=== PATIENT | male | born 1980 | race Caucasian/White ===

== ENCOUNTER 2024-12-07 23:32 | Emergency (ER) | payer BC, SELFPAY ==
[2024-12-07 23:41] VITALS: BP 117/94
[2024-12-08 00:31] VITALS: BMI 28.1
--- NOTE | 2024-12-08 00:39 | ED.GENMED ---
History of Present Illness
General
Chief Complaint: Fever
Time Seen by Provider: 12/08/24 00:08
History of Present Illness
History of Present Illness:
44-year-old man presenting to the emergency department with diarrhea. Patient states for the past 24 hours she has had multiple episodes of diarrhea. Is nonbloody. He has had a few episodes of nausea vomiting this morning. He is also had a fever
at home. He states that his son has similar symptoms and was admitted at [facility] yesterday. They are working him up for possible bacterial diarrhea. They do not have a stool culture back yet. Patient denies any recent travel antibiotics or new
food. No rash. He does state that he felt slightly lightheaded dizzy earlier today
Phy Exam
Physical Exam
Physical Exam:
GENERAL: in no acute distress
HEENT: normocephalic, extraocular movements intact, dry oral mucosa
NECK: normal inspection
RESPIRATORY: no respiratory distress, clear to auscultation bilaterally
CARDIOVASCULAR: regular rate and rhythm
ABDOMEN/: soft, non-distended, non-tender to palpation, no rebound or guarding
EXTREMITIES: non-tender, no edema/swelling
NEUROLOGIC: awake and alert, moves all extremities
SKIN: warm
Sepsis
Sepsis Screening
Sepsis Assessment: Sepsis Ruled Out
Sepsis Screen
Sepsis Screen: Sepsis Ruled Out
Date: 12/08/24
Time: 01:58
Course
Orders/Labs/Results
Orders:
Orders
12/08/24 00:33
0.9% Sodium Chloride 1000 ml [Nss] 1,000 ml IV BOLUS
12/08/24 00:34
Ondansetron Injectable [Zofran] 4 mg IV NOW STA
12/08/24 00:46
Complete Blood Count/With Diff Urgent
Comprehensive Metabolic Panel Urgent
Stool Culture Urgent
KARIS Source: Feces/Stool
Specimen Description:
Date Specimen was Collected: 12/08/24
Time Specimen was Collected: 00:42
Abnormal Lab Results
12/08/24
00:46
WBC 11.4 H 10^3/uL
(4.8-10.8)
MCH 31.3 H pg
(27.0-31.0)
Abs Immat Gran (auto) 0.1 H 10^3/uL
(0-0.05)
Absolute Neuts (auto) 8.9 H 10^3/uL
(1.4-6.5)
Absolute Lymphs (auto) 0.8 L 10^3/uL
(1.2-3.4)
Absolute Monos (auto) 1.5 H 10^3/uL
(0.1-0.6)
Immature Gran % 0.6 H %
(0-0.5)
Neutrophils % 78.1 H %
(42.2-75.2)
Lymphocytes % 7.2 L %
(20.5-51.1)
Monocytes % 13.1 H %
(1.7-9.3)
Carbon Dioxide 20 L mmol/L
(22-30)
Glucose 116 H mg/dl
(70-99)
Albumin 5.1 H g/dl
(3.5-5.0)
12/08/24 00:46
12/08/24 00:46
Vital Signs
Initial and Last Documented VS:
Initial Vital Signs
Temp Pulse Resp BP Pulse Ox
98.9 F 100 20 117/94 98
12/07/24 23:41 12/07/24 23:41 12/07/24 23:41 12/07/24 23:41 12/07/24 23:41
Last Documented Vital Signs
Temp Pulse Resp BP Pulse Ox
98.5 F 100 20 117/94 98
12/08/24 00:30 12/07/24 23:41 12/07/24 23:41 12/07/24 23:41 12/07/24 23:41
MDM/Problems Addressed
Differential Diagnosis Includes:
Patient is a 44-year-old man presenting to the emergency department with countless episodes of diarrhea for the past day and 2 episodes of nausea vomiting. On arrival patient is afebrile. Exam does show dry oromucosa but shows a benign abdomen.
Likely viral gastroenteritis. History and exam not consistent with an acute abdomen or signs of obstruction intussusception perforated viscus. No abdominal tenderness to suggest intra-abdominal abscess. Will give fluids and antiemetics. Will
check blood work and obtain stool sample. Patient advised likely will not start patient on antibiotics until the results of the stool culture have been reported.
*Critical Care Note
Total Time (30-74mins, 75-104mins- exclusive of procedures): Not Applicable
Update Note
Update Note:
On reevaluation patient feels much better after the IV fluids. He is tolerating p.o. Blood work does show slight leukocytosis this with elevated monocytes and neutrophils. There are no bands which is reassuring. I did discuss patient again about
CT scanning. However his abdomen remains benign and he is tolerating p.o. Will hold off at this time. Patient remained afebrile during his emergency department visit. Patient advised strict return precautions including persistent fever worsening
pain, ongoing nausea vomiting. He did give us a stool sample. Will call him if the results grow something that we can give antibiotics for
ED Attending Note
-
Portions of this chart may have been created with voice recognition software.� Occasional wrong word or��sound alike� substitutions may have occurred due to the inherent limitations of voice recognition software.
Discharge Plan
Departure
Patient Disposition: Home (Routine Discharge)
Date of Disposition: 12/08/24
Time of Disposition: 01:55
Patient with high blood pressure during this ER visit?: No
Discharge Problem:
Gastroenteritis
Instructions: Diarrhea in adults - ED discharge instructions
Prescriptions:
New
ondansetron 4 mg tablet,disintegrating
4 mg PO Q8H PRN (Reason: nausea and vomiting) 3 Days Qty: 7 0RF
Referrals:
Danielle Wolfe DO [Family Provider] -
Activity Restrictions/Additional Instructions:
You have been evaluated in the Emergency Department today for diarrhea and nausea vomiting. Please drink plenty of fluids. I did prescribe you a short course of Zofran. We will call you if your stool culture grows something that we can start you
on antibiotics for.
Please follow up with your primary care physician within two days.
Return to the Emergency Department if you experience worsening or uncontrolled pain, inability to tolerate fluids by mouth, difficulty breathing, fevers 100.4�F or greater, recurrent vomiting, or any other concerning symptoms.
Thank you for choosing us for your care.
Interventions
Interventions:
*Risk Screen - Suicide Last Done: 12/07/24 23:41
*General Assessment Last Done: 12/07/24 23:41
*Neglect/Abuse Screening Last Done: 12/07/24 23:41
*ED- Fall Risk Assessment Last Done: 12/08/24 00:37
*ED COVID-19 Vaccine History Last Done: 12/07/24 23:41
OH-Nxcgsp-Ristiqehbc Assessment Last Done: 12/08/24 00:36
ED- Neurological Assessment Last Done: 12/08/24 00:36
ED-Skin Assessment Last Done: 12/08/24 00:36
Discharge Date and Time
Print Language: HEBREW
[2024-12-08] MEDS: NSS 1000 IV (00:50)
[2024-12-08 00:51] VITALS: BP 90/58
[2024-12-08 01:01] LABS: % Basophils 0.3 % (0-2); % Eosinophils 0.7 % (0-6); % Immature Granulocytes 0.6 % (0-0.5); % Lymphocytes 7.2 % (20.5-51.1); % Monocytes 13.1 % (1.7-9.3); % Neutrophils 78.1 % (42.2-75.2); Absolute Eosinophils 0.1 10^3/uL (0-0.7); Absolute Immature Granulocytes 0.1 10^3/uL (0-0.05); Absolute Lymphocytes 0.8 10^3/uL (1.2-3.4); Absolute Monocytes 1.5 10^3/uL (0.1-0.6); Absolute Neutrophils 8.9 10^3/uL (1.4-6.5); Hemoglobin 15.9 g/dL (13.0-18.0); Mean Corp Hgb Conc. 36.1 g/dL (33.0-37.0); Mean Corpuscular Hgb 31.3 pg (27.0-31.0); Mean Corpuscular Volume 86.6 fL (80.0-94.0); Mean Platelet Volume 10.4 fL (7.4-10.4); Nucleated Red Blood Cells % 0 % (-); Platelet Count 183 10^3/uL (130-400); Red Blood Cell Count 5.08 10^6/uL (4.70-6.10); Red Cell Dist. Width 11.9 % (11.5-14.5); White Blood Cell Count 11.4 10^3/uL (4.8-10.8)
[2024-12-08 01:19] LABS: ALT (SGPT) 34 U/L (0-50); AST (SGOT) 26 U/L (17-59); Albumin 5.1 g/dl (3.5-5.0); Alkaline Phosphatase 62 U/L (38-126); Blood Urea Nitrogen 10 mg/dl (9-20); Calcium 9.4 mg/dl (8.4-10.2); Carbon Dioxide 20 mmol/L (22-30); Chloride 103 mmol/L (98-107); Estimated Creatinine Clearance 119 ml/min; Glucose 116 mg/dl (70-99); Sodium 138 mmol/L (135-145); Total Bilirubin 0.8 mg/dl (0.2-1.3); Total Protein 7.5 g/dl (6.3-8.2); eGFR > 60.00
[2024-12-08 02:24] VITALS: BP 123/80
== END 2024-12-08 02:32 | disposition home or self-care (01) ==
LOC: EMR 23:32
PROVIDERS: EMERGENCY PHYSICIAN Student in an Organized Health Care Education/Training Program; FAMILY PHYSICIAN Family Medicine
DX: K52.9 Noninfective gastroenteritis and colitis, unspecified (principal); R42 Dizziness and giddiness; R11.2 Nausea with vomiting, unspecified; Z91.011 Allergy to milk products
CPT/HCPCS: 99284; 96360; 80053; 85025; 87045; 87046; 87427